=== PATIENT | male | born 1965 | race Caucasian/White ===

== ENCOUNTER → 2019-12-16 10:06 | Outpatient (CLI) | payer BC, SELFPAY ==
--- NOTE | ~2019-12-16 | XR_ITS ---
XR shoulder RT min 2V 12/16/2019 10:29 INDICATION: Shoulder pain PROCEDURE: 4 views right shoulder COMPARISON: No prior studies for comparison. FINDINGS: Fracture, dislocation or subluxation is not identified. There are mild degenerative changes of the acromioclavicular joint. The soft tissues appear within normal limits. No foreign bodies are identified. IMPRESSION: 1: NO ACUTE BONE OR JOINT ABNORMALITY IDENTIFIED. Reviewed, dictated and finalized at location A.
== END ==
PROVIDERS: PCP Emergency Medicine; Visit Provider Emergency Medicine
DX: M25.511 Pain in right shoulder (principal)
CPT/HCPCS: 73030

== ENCOUNTER 2020-12-13 08:29 | Outpatient (CLI) | payer BC, SELFPAY ==
--- NOTE | ~2020-12-13 | US_ITS ---
EXAMINATION: US abdomen complete DATE: 12/13/2020 09:05 INDICATION: Leukopenia TECHNIQUE: Multiple grayscale and Doppler ultrasound images of the abdomen were obtained. COMPARISON: None FINDINGS: Spleen is normal measuring 9.5 cm in maximal length. There is normal renal contour and echogenicity 1 1.3 x 6.2 x 5.4. The right kidney measures 11.4 x 5.0 x 5.8 cm and the left cm. There are no focal r enal lesions identified. There is no hydronephrosis. Abdominal aorta is normal measuring 2.5 cm in d iameter proximally 2.2 cm in the mid aorta and tapering to 1.8 cm the distal aorta. The proximal to m id inferior vena cava is normal. The pancreatic head and body are normal in appearance. The pancreas is largely obscured with small visualized portion of the pancreatic body appearing normal. Liver has normal echogenicity and contour, with a smooth surface. No liver lesion identified. No intrahepatic biliary duct dilation suspected. Portal venous flow was seen in the hepatopetal, normal direction and has normal Doppler waveform. The gallbladder is normal in appearance. There is no cholelithiasis. T he common bile duct measures 3 mm, which is normal. Sonographic Mathias sign was reported as negative by the advertising sales representative. IMPRESSION: 1. Normal abdominal ultrasound. Reviewed, dictated and finalized at location A.
== END 2020-12-13 08:30 | disposition home or self-care (01) ==
PROVIDERS: PCP Emergency Medicine; Visit Provider Internal Medicine Hematology & Oncology
DX: D72.819 Decreased white blood cell count, unspecified (principal)
CPT/HCPCS: 76700

== ENCOUNTER → 2021-01-23 10:11 | Outpatient (CLI) | payer BC, SELFPAY ==
--- NOTE | ~2021-01-23 | XR_ITS ---
XR cervical spine 4-5V 01/23/2021 10:34 Indication: Bilateral finger numbness Procedure: 4 view cervical spine Comparison: No prior studies for comparison. Findings: Normal cervical alignment. Vertebral body and disc heights are preserved. No prevertebral s oft tissue swelling. Odontoid process within normal limits. No fracture or traumatic malalignment. Impression: 1: No significant abnormality of the cervical spine Reviewed, dictated and finalized at location B. Impression: 1: No significant abnormality of the cervical spine
== END ==
PROVIDERS: PCP Emergency Medicine; Visit Provider Emergency Medicine
DX: R20.2 Paresthesia of skin (principal)
CPT/HCPCS: 72050

== ENCOUNTER 2021-12-30 10:42 | Outpatient (CLI) | payer BC, SELFPAY ==
[2021-12-30 11:16] LABS: Basophils Percent Auto 0.6 % (0.2-1.2); Eosinophils Percent Auto 0.8 % (0-4.4); Hematocrit 39.2 % (42.0-52.0); Hemoglobin 13.1 g/dL (14.0-18.0); Immature Granulocyte Absolute 0.01 K/mm3 (0.00-0.031); Immature Granulocyte Percent A 0.3 % (0-0.5); Lymphocytes Absolute Auto 0.88 K/mm3 (0.9-3.2); Lymphocytes Percent Auto 24.8 % (18.3-44.2); Mean Corpuscular HGB Conc 33.4 g/dl (32-36); Mean Corpuscular Hemoglobin 31.2 pg (26-34); Mean Corpuscular Volume 93.3 fl (80-100); Mean Platelet Volume 9.3 fl (7.4-10.4); Monocytes Absolute Auto 0.5 K/mm3 (0.1-0.6); Monocytes Percent Auto 13.2 % (2.6-8.5); Neutrophils Absolute Auto 2.1 K/mm3 (1.3-6.7); Neutrophils Percent Auto 60.3 % (45.5-73.1); Platelet Count Result 322 k/mm3 (150-375); Red Cell Distribution Width 12.5 % (11.5-14.5); White Blood Count 3.6 K/mm3 (4.5-10.0)
[2021-12-30 14:23] LABS: Alanine Aminotransferase 41 U/L (6-50); Albumin Level 4.5 g/dL (3.5-5.1); Alkaline Phosphatase 65 U/L (38-126); Anion Gap 5 mmol/L (8-16); Aspartate Amino Transferase 57 U/L (17-59); Bilirubin,Total 0.3 mg/dL (0.2-1.3); Blood Urea Nitrogen 21 mg/dL (9-20); Calcium 9.1 mg/dL (8.4-10.2); Carbon Dioxide 28 mmol/L (22-30); Chloride 100 mmol/L (98-107); Estimated Glomerular Filt Rate > 60; Glucose 84 mg/dL (65-110); Sodium 133 mmol/L (137-145)
[2021-12-30 15:36] LABS: Folic Acid > 20.0 ng/mL (2.76->20)
== END 2021-12-30 10:43 | disposition home or self-care (01) ==
LOC: ANHLAB 10:43
PROVIDERS: PCP Emergency Medicine; Visit Provider Internal Medicine Hematology & Oncology
DX: D72.819 Decreased white blood cell count, unspecified (principal)
CPT/HCPCS: 36415; 80053; 82607; 82746; 85025; 86038

== ENCOUNTER 2022-07-14 10:16 | Emergency (ER) | payer BC, SELFPAY ==
--- NOTE | ~2022-07-14 | XR_ITS ---
XR chest 2V 07/14/2022 12:22 Indication: Cough for 15 days. Procedure: PA and lateral views of the chest Comparison: 05/18/2019 Findings: There is a new irregular shaped nodular density right mid thorax, suspicious for malignancy . Recommend correlation with CT chest. Size normal. No pleural effusion or pneumothorax. Left lung cl ear. Impression: 1: New irregular nodular density right mid thorax. Recommend follow-up CT chest for further character ization. Reviewed, dictated and finalized at location A. CHOOL ASSOCIATE TEACHER Impression: 1: New irregular nodular density right mid thorax. Recommend follow-up CT chest for further characterization.
[2022-07-14 10:36] VITALS: BP 126/76; PULSE 74; RESP 20; TEMP 36.1; O2SAT 98
--- NOTE | 2022-07-14 12:02 | ED.URI ---
HPI - URI/Sore Throat General Chief Complaint: Upper Respiratory Infection Stated Complaint: FEVER Time Seen by Provider: 07/14/22 12:02 Source: patient, RN notes reviewed and old records reviewed Mode of arrival: ambulatory Limitations: no limitations History of Present Illness HPI Narrative: 57 year old male who presents to [facility] with complaints of illness since the 15 of this month which included fever and cough. Patient states that he seems not to be able to get well. He reports that he no longer has fevers but continues to have cough which is productive, nasal congestion and drainage, states that he feels like he is run down and has no energy. Patient reports that he has some shortness of breath especially when he lays down, has had to sleep propped up. Patient reports that he has taken DayQuil, NyQuil, Flonase, Ibuprofen MD elicited complaint: fever, rhinorrhea, sinus pain and other (orthopnea) Pertinent past history: other (prior history of smoking) Onset (ago): week(s) (2) Exacerbating factors: supine positioning Associated symptoms: fever, rhinorrhea, nasal congestion, cough, shortness of breath and other (orthopnea) Treatments prior to arrival: ibuprofen, cold medicine and other (Flonase) Related Data Home Medications Medication Instructions Recorded Confirmed amitriptyline 50 mg tablet 50 mg PO DAILY 07/14/22 07/14/22 losartan 100 1 tablet PO DAILY 07/14/22 07/14/22 mg-hydrochlorothiazide 25 mg tablet metoprolol succinate 50 mg 50 mg PO DAILY 07/14/22 07/14/22 tablet,extended release 24 hr Allergies Allergy/AdvReac Type Severity Reaction Status Date / Time No Known Allergies Allergy Verified 07/14/22 11:17 Review of Systems Review of Systems: CONSTITUTIONAL: Reports malaise, chills, sweats, or fever. EYES: Denies visual changes, redness, or discharge. ENT: Reports rhinorrhea, congestion, sinus pain, no otalgia or sore throat. CARDIOVASCULAR: Denies chest pain, palpitations, or edema. RESPIRATORY: Reports cough.? Reports dyspnea and orthopnea GASTROINTESTINAL: Denies abdominal pain, nausea, vomiting, diarrhea SKIN: Denies rash or itching. MUSCULOSKELETAL: Denies myalgia. NEUROLOGIC: Denies headache. All systems reviewed & are unremarkable except as noted in HPI and below PMFSH Past Medical History Medical History (Updated 12/04/22 @ 09:51 by Cassie Landis NP) Anxiety Hypertension Shingles Social History Social History (Updated 07/18/22 @ 09:44 by Cassie Landis NP) Smoking status: Former smoker Alcohol intake: unknown Substance use type: does not use Education: Never Attended/Kindergarten Only Living arrangements: with family Gender identity (if verbalized by the patient): Male Comments At time of signature, agree with nursing past medical, surgical, social and family history. There is no relevant family history pertinent to the presenting complaint Exam Narrative: GENERAL: Illl-appearing, well-nourished, and in no acute distress. HEAD: Normocephalic EYES: PERRLA, conjunctivae clear ENT: Nares clear, turbinates edematous and erythematous, clear discharge. Mucous membranes moist. TM pearly perkins with dull light reflex bilaterally; no tragal tenderness. Oropharynx erythematous without lesions. Tonsils not enlarged and without exudate, no drooling, no hoarseness, no trismus, uvula midline.post nasal drainage NECK: Supple. No lymphadenopathy CHEST: Decreased to auscultation, breath sounds equal. No wheezing, rhonchi, rales, or stridor. No acute respiratory distress, speaks in full sentences.acute cough with orthopnea. HEART: Regular rate and rhythm. No murmur heard. SKIN: Warm, dry, no rash. NEURO: Alert and oriented x3. PSYCH: Normal mood and affect Course Course Emergency Course: Patient is aware of diagnosis, understands and agrees to treatment plan.? Anticipatory guidance given.? Patient agrees to follow-up as directed
== END 2022-07-14 13:20 | disposition home or self-care (01) ==
PROVIDERS: Emergency Provider Registered Nurse
DX: J18.9 Pneumonia, unspecified organism (principal); I10 Essential (primary) hypertension; Z87.891 Personal history of nicotine dependence
CPT/HCPCS: 71046; 99213; G0463

== ENCOUNTER 2022-07-15 11:05 | Outpatient (CLI) | payer BC, SELFPAY ==
--- NOTE | ~2022-07-15 | CT_ITS ---
EXAMINATION:CT diagnostic chest wo con DATE: 07/15/2022 11:27 INDICATION: Right lung nodule. TECHNIQUE: Computed tomography (CT) of the chest was performed without intravenous contrast. Automate d exposure control and iterative reconstruction technique were employed. The dose-length product (DLP ) was 207.69 mGy-cm. COMPARISON: Chest 2 views 07/14/2022 FINDINGS: There are airspace opacities and tree-in-bud opacities and centrilobular nodules involving posterior segment right upper lobe, consistent with pneumonia. There are centrilobular groundglass op acities in right middle lobe. There are tree-in-bud opacities in the basilar lower lobes and perihila r left upper lobe. No pleural effusion. Calcified hilar and mediastinal lymph nodes are consistent wi th old granulomatous disease. There is mild noncalcified mediastinal lymphadenopathy, likely reactive . The heart size is normal. There are coronary artery calcifications. No pericardial effusion. There is mild thoracic spondylosis. IMPRESSION: 1. Multifocal pneumonia, worst in right upper lobe correlating with the chest radiograph abnormality. 2. Mild mediastinal lymphadenopathy, likely reactive. Reviewed, dictated and finalized at location A. ENTARY SCHOOL TEACHER'S AIDE IMPRESSION: 1. Multifocal pneumonia, worst in right upper lobe correlating with the chest r adiograph abnormality. 2. Mild mediastinal lymphadenopathy, likely reactive.
== END 2022-07-15 11:06 | disposition home or self-care (01) ==
PROVIDERS: PCP Emergency Medicine; Visit Provider Emergency Medicine
DX: R91.1 Solitary pulmonary nodule (principal); J18.9 Pneumonia, unspecified organism
CPT/HCPCS: 71250

== ENCOUNTER → 2022-09-17 08:34 | Outpatient (CLI) | payer BC, SELFPAY ==
--- NOTE | ~2022-09-17 | XR_ITS ---
Clinical Indication: Pneumonia PA and lateral views of the chest: Comparison: 07/14/2022 Findings: The lungs are clear, without evidence of focal consolidation or pleural effusion. Cardiome diastinal silhouette is within normal limits. Bones and soft tissues are unremarkable. Impression: Normal chest. Reviewed, dictated and finalized at [facility]. OR PRICING ANALYST Impression: Normal chest.
== END ==
PROVIDERS: PCP Emergency Medicine; Visit Provider Emergency Medicine
DX: J18.9 Pneumonia, unspecified organism (principal)
CPT/HCPCS: 71046

== ENCOUNTER 2022-09-22 13:04 | Outpatient (CLI) | payer BC, SELFPAY ==
[2022-09-22 13:18] LABS: Hemoglobin 13.1 g/dL (14.0-18.0); Mean Corpuscular HGB Conc 33.6 g/dl (32-36); Mean Corpuscular Volume 92.4 fl (80-100); Platelet Count Result 320 k/mm3 (150-375); Red Blood Count 4.22 M/mm3 (4.6-6.20); Red Cell Distribution Width 12.7 % (11.5-14.5); White Blood Count 5.3 K/mm3 (4.5-10.0)
[2022-09-22 13:54] LABS: Alanine Aminotransferase 31 U/L (6-50); Albumin Level 4.4 g/dL (3.5-5.1); Alkaline Phosphatase 84 U/L (38-126); Anion Gap 6 mmol/L (8-16); Aspartate Amino Transferase 48 U/L (17-59); Bilirubin,Total 0.8 mg/dL (0.2-1.3); Blood Urea Nitrogen 20 mg/dL (9-20); Calcium 9.2 mg/dL (8.4-10.2); Carbon Dioxide 29 mmol/L (22-30); Chloride 100 mmol/L (98-107); Estimated Glomerular Filt Rate > 60; Glucose 93 mg/dL (65-110); Potassium 4.4 mmol/L (3.4-5.0); Sodium 135 mmol/L (137-145)
[2022-09-22 14:41] LABS: Iron 120 ug/dL (49-181)
[2022-09-22 14:50] LABS: Percent Iron Saturation 36 % (20-50)
[2022-09-22 15:00] LABS: Folic Acid 19.4 ng/mL (2.76->20)
== END 2022-09-22 13:05 | disposition home or self-care (01) ==
PROVIDERS: PCP Emergency Medicine; Visit Provider Internal Medicine Hematology & Oncology
DX: D72.819 Decreased white blood cell count, unspecified (principal)
CPT/HCPCS: 36415; 80053; 82607; 82728; 82746; 83540; 83550; 85027

== ENCOUNTER → 2023-04-29 11:42 | Outpatient (CLI) | payer BC, SELFPAY ==
--- NOTE | ~2023-04-29 | XR_ITS ---
Clinical Indication: Wheezing PA and lateral views of the chest: Comparison: 09/17/2022 Findings: The lungs are clear, without evidence of focal consolidation or pleural effusion. Cardiome diastinal silhouette is within normal limits. Bones and soft tissues are unremarkable. Impression: Normal chest. Reviewed, dictated and finalized at [facility]. Impression: Normal chest.
== END ==
PROVIDERS: PCP Emergency Medicine; Visit Provider Emergency Medicine
DX: R06.2 Wheezing (principal)
CPT/HCPCS: 71046

== ENCOUNTER 2023-09-22 13:54 | Outpatient (CLI) | payer BC, SELFPAY ==
[2023-09-22 14:22] LABS: Basophils Percent Auto 0.5 % (0.2-1.2); Eosinophils Percent Auto 0.5 % (0-4.4); Hematocrit 37.2 % (42.0-52.0); Hemoglobin 12.6 g/dL (14.0-18.0); Immature Granulocyte Absolute 0.01 K/mm3 (0.00-0.031); Immature Granulocyte Percent A 0.2 % (0-0.5); Lymphocytes Absolute Auto 1.09 K/mm3 (0.9-3.2); Lymphocytes Percent Auto 24.8 % (18.3-44.2); Mean Corpuscular HGB Conc 33.9 g/dl (32-36); Mean Corpuscular Hemoglobin 31.1 pg (26-34); Mean Corpuscular Volume 91.9 fl (80-100); Mean Platelet Volume 8.8 fl (7.4-10.4); Monocytes Absolute Auto 0.7 K/mm3 (0.1-0.6); Neutrophils Absolute Auto 2.6 K/mm3 (1.3-6.7); Platelet Count Result 362 k/mm3 (150-375); Red Blood Count 4.05 M/mm3 (4.6-6.20); Red Cell Distribution Width 12.7 % (11.5-14.5); White Blood Count 4.4 K/mm3 (4.5-10.0)
[2023-09-22 17:25] LABS: Add Urine Microscopic? YES; Appearance Urine Clear (Clear); Bacteria Urine None Seen /hpf; Bilirubin Urine Negative (Negative); Blood Urine Negative (Negative); Color Urine Yellow (Yellow); Glucose Urine UA Negative (Negative); Ketones Urine Trace mg/dL (Negative); Leukocyte Esterase Ur Negative LEU/UL (NEGATIVE); Nitrate Urine Negative (Negative); Non Pathogenic Casts 0-2; Protein Urine 1+ mg/dL (Negative); RBC Urine 0-2 /hpf (0-2); Specific Grav Ur 1.023 (1.001-1.035); Squamous Epithelial Cell Urine None seen /hpf (Few); WBC Urine 0-5 /hpf (0-3); pH Urine 5.5 (5.0-9.0)
[2023-09-22 17:26] LABS: Alanine Aminotransferase 41 U/L (6-50); Albumin Level 4.3 g/dL (3.5-5.1); Alkaline Phosphatase 79 U/L (38-126); Anion Gap 8 mmol/L (8-16); Aspartate Amino Transferase 62 U/L (17-59); Bilirubin,Total 0.8 mg/dL (0.2-1.3); Blood Urea Nitrogen 30 mg/dL (9-20); Calcium 9.8 mg/dL (8.4-10.2); Carbon Dioxide 25 mmol/L (22-30); Chloride 103 mmol/L (98-107); Cholesterol 248 mg/dL (0-200); Estimated Glomerular Filt Rate > 60; Glucose 94 mg/dL (65-110); HDL Direct 73 mg/dL; Iron 103 ug/dL (49-181); Potassium 4.5 mmol/L (3.4-5.0); Sodium 136 mmol/L (137-145); Triglycerides 74 mg/dL (<150)
[2023-09-22 17:37] LABS: LDL Cholesterol Direct 126 mg/dL
[2023-09-22 17:41] LABS: Percent Iron Saturation 33 % (20-50)
[2023-09-22 17:45] LABS: Free T4 Free Thyroxine 1.13 ng/mL (0.78-2.19)
[2023-09-22 18:39] LABS: Folic Acid > 20.0 ng/mL (2.76->20)
== END 2023-09-22 13:55 | disposition home or self-care (01) ==
LOC: ANHLAB 13:56
PROVIDERS: PCP Emergency Medicine; Visit Provider Internal Medicine Hematology & Oncology
DX: D64.9 Anemia, unspecified (principal); I10 Essential (primary) hypertension; E78.5 Hyperlipidemia, unspecified; D72.819 Decreased white blood cell count, unspecified
CPT/HCPCS: 36415; 80053; 80061; 81001; 82607; 82728; 82746; 83540; 83550; 84439; 84443; 85025

== ENCOUNTER 2024-03-26 11:28 | Outpatient (CLI) | payer BC, SELFPAY ==
[2024-03-26 11:54] LABS: Basophils Percent Auto 0.6 % (0.2-1.2); Eosinophils Percent Auto 0.8 % (0-4.4); Hematocrit 37.6 % (42.0-52.0); Hemoglobin 12.9 g/dL (14.0-18.0); Immature Granulocyte Absolute 0.01 K/mm3 (0.00-0.031); Immature Granulocyte Percent A 0.2 % (0-0.5); Lymphocytes Absolute Auto 1.15 K/mm3 (0.9-3.2); Lymphocytes Percent Auto 22.7 % (18.3-44.2); Mean Corpuscular HGB Conc 34.3 g/dl (32-36); Mean Corpuscular Hemoglobin 31.6 pg (26-34); Mean Corpuscular Volume 92.2 fl (80-100); Mean Platelet Volume 8.9 fl (7.4-10.4); Monocytes Absolute Auto 0.6 K/mm3 (0.1-0.6); Monocytes Percent Auto 11.2 % (2.6-8.5); Neutrophils Absolute Auto 3.3 K/mm3 (1.3-6.7); Neutrophils Percent Auto 64.5 % (45.5-73.1); Platelet Count Result 341 k/mm3 (150-375); Red Blood Count 4.08 M/mm3 (4.6-6.20); Red Cell Distribution Width 12.3 % (11.5-14.5); White Blood Count 5.1 K/mm3 (4.5-10.0)
[2024-03-26 16:29] LABS: Add Urine Microscopic? YES; Appearance Urine Clear (Clear); Bacteria Urine None Seen /hpf; Bilirubin Urine Negative (Negative); Blood Urine Negative (Negative); Color Urine Yellow (Yellow); Glucose Urine UA Negative (Negative); Ketones Urine Negative (Negative); Leukocyte Esterase Ur Negative LEU/UL (Negative); Nitrate Urine Negative (Negative); Non Pathogenic Casts 0-2; Protein Urine Trace mg/dL (Negative); RBC Urine 0-2 /hpf (0-2); Squamous Epithelial Cell Urine None Seen /hpf (Few); Urobilinogen Urine 0.2 mg/dL (<2.0); WBC Urine 0-5 /hpf (0-3); pH Urine 5.5 (5.0-9.0)
[2024-03-26 17:32] LABS: Creatinine Urine 118.5 mg/dL
[2024-03-26 17:38] LABS: MALB Creatinine Ratio 66.8 mg/g (0-30); Microalbumin Urine Random 79.1 mg/L (0-16.7)
[2024-03-26 18:35] LABS: Free T4 Free Thyroxine 1.22 ng/mL (0.78-2.19)
[2024-03-26 19:45] LABS: Iron 107 ug/dL (49-181)
[2024-03-26 19:52] LABS: Cholesterol 279 mg/dL (0-200); HDL Direct 64 mg/dL; Triglycerides 135 mg/dL (<150)
[2024-03-26 19:57] LABS: Percent Iron Saturation 35 % (20-50)
[2024-03-26 20:03] LABS: LDL Cholesterol Direct 161 mg/dL
[2024-03-26 20:13] LABS: Alanine Aminotransferase 29 U/L (6-50); Albumin Level 4.4 g/dL (3.5-5.1); Alkaline Phosphatase 79 U/L (38-126); Anion Gap 10 mmol/L (4-12); Aspartate Amino Transferase 42 U/L (17-59); Bilirubin,Total 0.6 mg/dL (0.2-1.3); Blood Urea Nitrogen 26 mg/dL (9-20); Calcium 9.1 mg/dL (8.4-10.2); Carbon Dioxide 26 mmol/L (22-30); Chloride 96 mmol/L (98-107); Estimated Glomerular Filt Rate > 60; Glucose 97 mg/dL (65-110); Potassium 4.6 mmol/L (3.4-5.0); Sodium 132 mmol/L (137-145)
[2024-03-26 20:25] LABS: Prostate Specific Antigen 1.1 ng/mL (< OR = 4.0)
[2024-03-26 21:28] LABS: Folic Acid > 20.0 ng/mL (2.76->20)
[2024-03-26 21:44] LABS: Hemoglobin A1C 5.6 % (<5.7)
== END 2024-03-26 11:29 | disposition home or self-care (01) ==
LOC: ANHLAB 11:30
PROVIDERS: PCP Emergency Medicine; Visit Provider Internal Medicine Hematology & Oncology
DX: D72.819 Decreased white blood cell count, unspecified (principal); F41.9 Anxiety disorder, unspecified; I10 Essential (primary) hypertension; E78.5 Hyperlipidemia, unspecified
CPT/HCPCS: 36415; 80053; 80061; 81001; 82043; 82607; 82728; 82746; 83036; 83540; 83550; 84153; 84439; 84443; 85025

== ENCOUNTER 2024-03-28 10:51 | Outpatient (CLI) | payer BC, SELFPAY ==
[2024-03-28 21:17] LABS: Immunoglobulin A 374 mg/dL (70-400); Immunoglobulin G 1744 mg/dL (700-1600); Immunoglobulin M 65 mg/dL (40-230)
[2024-03-29 16:33] LABS: Kappa\\Lambda Light Chains 0.87 (0.26-1.65); Lambda Light Chain 43.7 mg/L (5.7-26.3)
[2024-03-30 13:43] LABS: Protein, Total 7.5 g/dL (6.1-8.1)
[2024-04-03 08:34] LABS: Albumin 4.2 g/dL (3.8-4.8); Alpha 1 Globulin 0.3 g/dL (0.2-0.3); Alpha 2 Globulin 0.7 g/dL (0.5-0.9); Beta 1 Globulin 0.5 g/dL (0.4-0.6); Gamma Globulin 1.5 g/dL (0.8-1.7)
== END 2024-03-28 10:52 | disposition home or self-care (01) ==
LOC: ANHLAB 10:52
PROVIDERS: PCP Emergency Medicine; Visit Provider Internal Medicine Hematology & Oncology
DX: R77.9 Abnormality of plasma protein, unspecified (principal)
CPT/HCPCS: 36415; 82784; 83883; 84155; 84165

== ENCOUNTER 2024-11-09 13:16 | Outpatient (CLI) | payer BC, SELFPAY ==
--- OUTSIDE RECORDS SUMMARY | 2024-11-09 13:20 | XMS_ITS | Clinical Summary ---
Author Organization [facility] [employer] Address [address] [place] [address] Care Team Providers Care Barrel Waterer Name Role Phone Leandro Farrell MD Primary Care Provider [phone] Source Comments [facility] [employer],non-owned Affiliates and Associated Physician Practices is amultiple site organization consisting of ambulatory clinics and hospital sitesin [place], [place], [place] and [place]. This disclosure is being madepursuant to the Care Everywhere program and may not contain all information available regarding this patient. Last updated 18.[facility] [employer] Allergies No known active allergies Medications * Be aware that medications may not be up to date on this document. Alwaysverify current medications with the patient. Medication Sig Dispensed Refills Start Date End Date Status Cyanocobalamin 1000 MCG 01/06/2021 Active fluticasone propionate (FLONASE) 50 MCG/ACT nasal spray 11/17/2020 Active lisinopril-hydroCHLORO thiazide (PRINZIDE; ZESTORETIC) 20-12.5 MG tablet Take 1 tablet by mouth 2 times daily 11/24/2020 Active nystatin (MYCOSTATIN) 848991 UNIT/GM cream 04/19/2021 Acti ve Ostrander-3 Fatty Acids (FISH OIL CONCENTRATE) 1000 MG 01/06/2021 Active PARoxetine (PAXIL) 20 MG tablet 03/31/2021 Active simvastatin (ZOCOR) 20 MG tablet 02/01/2021 Active triamcinolone acetonide (KENALOG) 0.1 % cream 03/31/2021 Active Active Problems Problem Noted Date Diagnosed Date Anxiety 01/06/2021 Leukopenia 12/05/2020 Primary hypertension 05/21/2019 Tobacco abuse 05/21/2019 Family History Medical History Relation Name Comments Heart Disease Father Other - Neurologic Father Stroke Cancer Mother Relation Name Status Comments Father Mother Social History Tobacco Use Types Packs/Day Years Used Date Smoking Tobacco: Every Day Cigarettes 0.5 10 Smokeless Tobacco: Never Alcohol Use Standard Drinks/Week Comments Yes 0 (1 standard drink = 0.6 oz pur e alcohol) daily Sex and Gender Information Value Date Recorded Sex Assigned at Not on file Gender Identity Not on file Sexual Orientation Not on file Last Filed Vital Signs Vital Sign Reading Time Taken Comments Blood Pressure 143/75 06/09/2021 7:58 AM CDT Pulse 77 06/09/2021 7:58 AM CDT Temperature 36.1 C (97 F) 06/09/2021 7:58 AM CDT Respiratory Rate - - Oxygen Saturation 94% 06/09/2021 7:58 AM CDT Inhaled Oxygen Concentration - - Weight 83.6 kg (184 lb 6.4 oz) 06/09/2021 7:58 A M CDT Height 180.3 cm (5' 11 ) 06/09/2021 7:58 AM CDT Body Mass Index 25.72 06/09/2021 7:58 AM CDT Plan of Treatment Health Maintenance Due Date Last Done Comments COLOGUARD (AGES 45-75) - COL ON CA SCREENING 1965 COLON MONITORING 1964 COLONOSCOPY - COLON CA SCREENING 1964 CT COLONOGRAPHY - COLON CA SCREENING 1965 Colorectal Cancer Screening 1965 FIT - COLON CA SCREENING 1964 FLEX SIG - COLON CA SCREENING 1964 HIV SCREENING 02/20/1979 HEPATITIS C SCREENING 02/16/1982 DTAP/TDAP/TD VACCINES (1 - Tdap) 02/20/1983 PNEUMOCOCCAL VACCINE 50+ (1 of 2 - PCV) 02/20/1983 PNEUMOCOCCAL VACCINE (1 of 2 - PCV) 02/20/1983 ZOSTER VACCINE (1 of 2) 02/20/2014 SCREENING FOR DIABETES 06/09/2021 COVID-19 VACCINE (4 - 2023-2 5 season) 2024 08/16/2021, 12/28/2020, 12/07/2020 INFLUENZA VACCINE (#1) 2024 08/06/2020 DEPRESSION SCREENING 08/15/2024 Respiratory Syncytial Virus (RSV) Vaccine Pt: or over 60 yrs (1 - 1-dose 75+ series) 02/20/2039 HEPATITIS B VACCINE Aged Out No longe r eligible based on patient's age to complete this topic HIB VACCINE Aged Out No longer eligi ble based on patient's age to complete this topic HPV VACCINE Aged Out No longer eligi ble based on patient's age to complete this topic MENINGOCOCCAL (Group B) VACCINE SHARED DECISION-MAKING Aged Out No longer eligible based on patient's age to complete this topic MENINGOCOCCAL GROUPS A/C/Y/W VACCINE Aged Out No longer eligible b ased on patient's age to complete this topic Care Teams Barrel Waterer Relationship Specialty Start Date End Date Leandro Farrell MD [address] [address] [place] [address] PCP - General 02/10/21
--- OUTSIDE RECORDS SUMMARY | 2024-11-09 13:21 | XMS_ITS | Clinical Summary ---
Author Organization [facility] Address [address] [place] [id number] Care Team Providers Care Quarter Folder Name Role Phone Unavailable Primary Care Provider Unavailabl e Social History Tobacco Use Types Packs/Day Years Used Date Smoking Tobacco: Never Assessed Sex and Gender Information Value Date Recorded Sex Assigned at Not on file Legal Sex Male 6:23 PM CDT Gender Identity Not on file Sexual Orientation Not on file Plan of Treatment Health Maintenance Due Date Last Done Comments Colorectal Cancer Screening Colonoscopy (10 Years) 1964 Annual Physical 02/20/1967 Hepatitis C 02/20/1982 DTaP, Tdap and Td Vaccines ( 1 - Tdap) 02/20/1983 Zoster Vaccines (1 of 2) 02/20/2014 COVID-19 Vaccine (2023-2 5 season) 2024 Influenza Adult (#1) 2024 RSV Immunization or 60+ Years (1 - 1-dose 75+ series) 02/20/2039 Meningococcal B Vaccine Aged Out No l onger eligible based on patient's age to complete this topic Meningococcal Vaccine Aged Out No roxana chivo eligible based on patient's age to complete this topic Pneumococcal Vaccine: Pediat rics (0 to 5 Years) and At-Risk Patients (6 to 64 Years) Aged Out No longer eligible b ased on patient's age to complete this topic RSV Immunizations Under 20 Months Aged Out No longer eligible based on patient's age to complete this topic
--- OUTSIDE RECORDS SUMMARY | 2024-11-09 13:21 | XMS_ITS | Clinical Summary ---
Author Organization [facility] Address [address] [place] [address] Care Team Providers Care Glass Maker Name Role Phone Leandro Farrell MD Primary Care Provider [phone] Allergies No known active allergies Medications fluticasone propionate (FLONASE) 50 mcg/spray Graham, Suspension nasal inhaler SPRAY 1 SPRAY INTO EACH NOSTRIL TWICE A DAY 11/17/2020 Active PARoxetine HCl (PAXIL) 10 mg tablet TAKE 1 TABLET BY MOUTH EVERY DAY 11/24/2020 Active COVID-19 vacc, mRNA,Pfizer,/PF (PFIZER COVID-19 VACCINE, EUA, IM) 12/07/2020 Active cyanocobalamin 1,000 mcg Tablet Take by mouth. 01/06/2021 Active Docosahexanoic Acid-Eicosapent 120-180 mg Capsule Take by mouth. 01/06/2021 Active losartan-hydroC HLOROthiazide (HYZAAR) 100-25 mg tablet Take by mouth. 01/05/2022 Active metoprolol succinate (TOPROL XL) 50 mg Extended Release 24 hour tablet Take by mouth. 02/11/2022 Active folic acid (FOLVITE) 400 mcg Tablet Take 400 mcg by mouth daily. Active ferrous sulfate 325 mg (65 mg iron) tablet Take 325 mg by mouth daily. Active omega-3/dha/epa /dpa/fish oil (OMEGA-3 2100 ORAL) Take by mouth. Active Active Problems Problem Noted Date Diagnosed Date Leukopenia 12/05/2020 Family History Medical History Relation Name Comments Heart Disease Father Relation Name Status Comments Daughter Father Mother Alive Sister 1 Sister 2 Alive Sister 3 Alive Sister 4 Alive Son 1 Alive Son 2 Alive Social History Tobacco Use Types Packs/Day Years Used Date Smoking Tobacco: Former Cigarettes Q uit: 08/15/2022 Smokeless Tobacco: Current Chew Tobacco Cessation:Ready to Q uit: Not Asked; Counseling Given: Not Answered Comments:couple a day Alcohol Use Standard Drinks/Week Comments Yes 0 (1 standard drink = 0.6 oz pur e alcohol) Sex and Gender Information Value Date Recorded Sex Assigned at Male 06/01/2024 10:17 PM CDT Legal Sex Male 1:08 PM CDT Gender Identity Male 06/01/2024 10:17 PM CDT Sexual Orientation Not on file Last Filed Vital Signs Vital Sign Reading Time Taken Comments Blood Pressure 137/74 03/28/2024 9:56 AM CDT Pulse 68 03/28/2024 9:56 AM CDT Temperature 36.8 C (98.2 F) 03/28/2024 9:56 AM CDT Respiratory Rate 16 03/28/2024 9:56 AM CDT Oxygen Saturation 96% 03/28/2024 9:56 AM CDT Inhaled Oxygen Concentration - - Weight 88.5 kg (195 lb) 03/28/2024 9:56 AM CDT Height 177.8 cm (5' 10 ) 01/01/2022 8:31 AM CDT Body Mass Index 27.98 01/01/2022 8:31 AM CDT Plan of Treatment Upcoming Encounters Date Type Department Care Team (Late st Contact Info) Description 11/15/2024 2:00 PM CDT Office Visit [facility] [place] [address] [facility] [address] [place] [address] Min Roberts MD [address] [facility] [address] [place] [address] Health Maintenance Due Date Last Done Comments Pre-Diabetes and Diabetes Screening 1965 DTAP/TDAP/TD VACCINES (1 - Tdap) 02/20/1983 COLORECTAL SCREENING 02/20/2009 Colorectal Cancer Screening 02/20/2009 FIT-DNA Q 3 years 02/20/2009 FIT/FOBT Q 1 year 02/20/2009 Flex Sig/CT Colonography Q 5 years 02/20/2009 ZOSTER VACCINE (1 of 2) 02/20/2014 INFLUENZA VACCINE (#1) 2024 Preventative Visit- Commercial 08/15/2024 RSV VACCINE (60+ or ) (1 - 1-dose 75+ series) 02/20/2039 Abdominal Aortic Aneurysm (A AA) Screening Completed 12/13/2020 HEPATITIS B VACCINES Aged Out No long er eligible based on patient's age to complete this topic Procedures Procedure Name Priority Date/Time Associated Diagnosis Comments US ABDOMEN COMPLETE Routine 12/13/2020 Leukopenia, unspecified type from Last 3 Months or Most Recently Relevant to Health Maintenance Results * US ABDOMEN COMPLETE (12/13/2020) Anatomical Region Laterality Modality Abdomen Ultrasound Min Roberts MD US ORDERABLES Final Result from Last 3 Months or Most Recently Relevant to Health Maintenance Insurance [address] BLUE ACCESS CHOICE Care Teams Glass Maker Relationship Specialty Start Date End Date Leandro Farrell MD [address] [place] [id number] PCP - General Emergency Medicine 12/05/20
--- OUTSIDE RECORDS SUMMARY | 2024-11-09 13:21 | XMS_ITS | CONTINUITY OF CARE DOCUMENT ---
Author Name chelo sandykana Address Unknown Organization [facility] Address [address] [facility] [address] [place] [address] Phone [phone] Care Team Providers Care Certified Master Safe Technician Name Role Phone Francisco LAMBERT, Tyler Unavailable VIVEK STEWART MD Unavailable [phone] VIVEK STEWART MD Unavailable [phone] PROBLEMS Condition Status Date Provider Notes Cardiovascular screening completed - Tyler Singh MD Abnormal EKG active Tyler Singh MD HTN essential active Tyler Singh MD DYSPNEA ON EXERTION, nml str ess echo 06/02 active Tyler Singh MD Emphysema active Tyler Singh MD FAMILY HISTORY OF HEART DISEASE active Tre Singh MD Tobacco abuse--quit active Tyler Singh MD Dizziness active Qaun Avelt Anxiety active Quan Tracy Chest pain--stress test & ec ho nl, 08/2023 active Tyler Singh MD ENCOUNTERS Date Type Provider Location Encounter Diag nosis - In-person encounter Office Visit Tyler Singh MD [facility] Chest pain--stress test & echo nl, 08/2023 - In-person encounter Office Visit Tyler Singh MD [facility] Tobacco abuse--quit - In-person encounter Office Visit Tyler Singh MD [facility] - In-person encounter Office Visit Tyler Singh MD [facility] - In-person encounter Office Visit Tyler Singh MD [facility] DizzinessAnxiety - In-person encounter Office Visit Tyler Singh MD [facility] - In-person encounter Office Visit Tyler Singh MD [facility] - In-person encounter Office Visit Tyler Singh MD [facility] - In-person encounter Office Visit Tyler Singh MD [facility] Cardiovascular screeningDYSPNEA ON EXERTION, nml stress echo 06/02 - In-person encounter Office Visit Tyler Singh MD [facility] Abnormal EKGHTN essentialDYSPNEA ON EXERTION, nml stress echo 06/02EmphysemaFAMILY HISTORY OF HEART DISEASETobacco abuse--quit VITAL SIGNS Date Observation Value Provider Body Mass Index (Ratio) 29.70 kg/m2 Tre Singh MD blood pressure, diastolic 78 mm[Hg] Arcelia nkLog blood pressure, systolic 140 mm[Hg] Nimisha og blood pressure, cuff size regular Phu blood pressure, diastolic 78 mm[Hg] Phu et blood pressure, systolic 140 mm[Hg] [facility] pulse rate 88 /min Juan oxygen saturation, oximetry 96 % respiratory rate E&M 12 /min weight E&M 207 [lb_av] height E&M 70 [in_i] [facility] y Body Mass Index (Ratio) 28.12 kg/m2 Tre Singh MD blood pressure, diastolic 88 mm[Hg] [facility] [place] blood pressure, systolic 152 mm[Hg] Keyur watkins Brii oxygen saturation, oximetry 97 % Linda Vegaman pulse rate 76 /min Linda Hsieh n respiratory rate E&M 16 /min Hilario alejo [place] blood pressure, cuff size regular [facility] [place] weight E&M 196 [lb_av] Linda Vegand n height E&M 70 [in_i] Linda Vegand n Body Mass Index (Ratio) 28.12 kg/m2 Tre Singh MD blood pressure, diastolic 86 mm[Hg] Arcelia nkLogkedar blood pressure, systolic 149 mm[Hg] Nimisha Noelogkedar respiratory rate E&M 18 /min Long Meza blood pressure, diastolic 86 mm[Hg] Adelaida Meza blood pressure, systolic 149 mm[Hg] Marlon Meza blood pressure, cuff size regular Adelaida Meza pulse rate 85 /min Eliana longoria oxygen saturation, oximetry 98 % Eliana Meza weight E&M 196 [lb_av] Eliana longoria height E&M 70 [in_i] Eliana longoria Body Mass Index (Ratio) 25.97 kg/m2 Tre Singh MD blood pressure, cuff size large Ke rri Vicki blood pressure, diastolic 80 mm[Hg] Ke rri Vicki blood pressure, systolic 136 mm[Hg] Zenaida Cohen oxygen saturation, oximetry 98 % Monalisa Cohen respiratory rate E&M 16 /min Monalisa tomas pulse rate 73 /min Monalisa Lovell lder weight E&M 181 [lb_av] Monalisa Lovell er height E&M 70 [in_i] Monalisa Brownleee [facility] Body Mass Index (Ratio) 25.97 kg/m2 Tre Singh MD blood pressure, diastolic 83 mm[Hg] To [facility] blood pressure, systolic 153 mm[Hg] Ton [facility] oxygen saturation, oximetry 92 % [facility] respiratory rate E&M 18 /min [facility] pulse rate 81 /min [facility] weight E&M 181 [lb_av] [facility] height E&M 70 [in_i] [facility] temperature site temporal [facility] temperature E&M 97.8 [degF] Berna Tanks monie Body Mass Index (Ratio) 26.83 kg/m2 Tre Singh MD blood pressure, resting Yes [facility] respiratory rate E&M 16 /min [facility] blood pressure, diastolic 83 mm[Hg] To [facility] blood pressure, systolic 153 mm[Hg] Ton [facility] oxygen saturation, oximetry 97 % [facility] pulse rate 78 /min [facility] weight E&M 187 [lb_av] [facility] Gross height E&M 70 [in_i] [facility] height E&M 70 [in_i] Tyler Singh MD blood pressure, diastolic 80 mm[Hg] To sriram Singh MD blood pressure, systolic 140 mm[Hg] Viktor Singh MD Body Mass Index (Ratio) 26.83 kg/m2 Tre Singh MD blood pressure, diastolic 80 mm[Hg] Er gil Jesus blood pressure, systolic 160 mm[Hg] Nicole Jesus oxygen saturation, oximetry 97 % Frances Jesus pulse rate 84 /min Frances Yoo weight E&M 187 [lb_av] Frances Yoo height E&M 70 [in_i] Frances Yoo Body Mass Index (Ratio) 26.40 kg/m2 Tre Singh MD blood pressure, resting No Luiz Jesus blood pressure, diastolic 82 mm[Hg] Miguel Jesus blood pressure, systolic 150 mm[Hg] Nicole Jesus oxygen saturation, oximetry 100 % Frances Jesus pulse rate 76 /min Frances Yoo weight E&M 184 [lb_av] Frances Yoo height E&M 70 [in_i] Frances Yoo ALLERGIES No Known Drug Allergies HISTORY OF MEDICATION USE Medication Status Instructions Dates Provider Indications Com ments losartan-hydroch lorothiazide 100-25 mg tablet active Take 1 tablet by mouth once a day Monalisa Cohen metoprolol succinate 50 mg tablet extended release 24 hr active TAKE 1 TABLET BY MOUTH EVERY DAY Matheus Disla losartan-hydroch lorothiazide 100-25 mg tablet completed TAKE 1 TABLET BY MOUTH EVERY DAY - Monalisa Cohen paroxetine HCl 20 mg tablet active TAKE 1 TABLET BY MOUTH EVERY DAY Matheus Disla metoprolol succinate 50 mg tablet extended release 24 hr completed Take 1 tablet by mouth once a day - Juan Johnston amlodipine 10 mg tablet completed Take 1 tablet by mouth once a day - Quinten ePace losartan-hydroch lorothiazide 100-25 mg tablet completed Take 1 tablet by mouth once a day - Rose Hermosillong Fish Oil 120-180 mg capsule active 1 tablet by mouth once a day Monalisa Vicki cyanocobalamin (vitamin B-12) 1,000 mcg tablet active 1 tablet once a day Monalisa Vicki simvastatin 20 mg tablet completed Take 1 tablet by mouth every night - Monalisa Patelparesher #90, 90 days supply, Prescribed by VIVEK STEWART, Filled 10/28/2020 fluticasone propionate 50 mcg/actuation spray,suspension active [place] 1 spray into both nostrils twice a day as needed Monalisa Anamikaer #16, 30 days supply, Prescribed by VIVEK STEWART, Filled 11/17/2020 paroxetine HCl 20 mg tablet completed Take 1 tablet by mouth once a day - Rose Dallasnikolas #90, 90 days supply, Prescribed by VIVEK STEWART, Filled 11/24/2020 nystatin 100,000 unit/gram cream active Apply twice a day as needed Monalisa Willsoner #30, 30 days supply, Prescribed by DAVID BLEVINS, Filled 11/27/2020 lisinopril-hydro chlorothiazide 20-12.5 mg tablet completed 1 tablet by mouth twice a day - Tyler Singh MD AMLODIPINE BESYLATE 5 MG ORAL TABLET completed one tab by mouth daily - Tyler Singh MD AMLODIPINE BESYLATE 2.5 MG ORAL TABLET completed one tab by mouth twice daily - Monique Garza RN SOCIAL HISTORY Date Observation Value Provider smoking history, tot al pack/day 4/D Quinten Peace cigarette use yes Quinten Peace smoking status Former smoker Quinten Lucas i social history E&M S moking History: P hunter is a former smoker. Quinten Peace smoking history, tot al pack/day 4/D Linda Teresa cigarette use yes Linda darden smoking status Former smoker Linda bowman social history reviewed E&M revi ewed - no changes required Quinten Peace social history reviewed E&M revi ewed - no changes required Quinten Peace smoking/tobacco cess ation, patient education and counseling yes Quan Tracy smoking history, tot al pack/day 4/D Quan Tracy cigarette use yes Quan Tracy smoking status Current every day smoker Deniz smithdella Tracy social history reviewed E&M revi ewed - no changes required Quan Avelfabiana social history E&M S moking History: P atient currently smokes every day. P atient has been counseled to quit. Quan Tracy social history reviewed E&M revi ewed - no changes required Quan Vallecillofabiana smoking/tobacco cess ation, patient education and counseling yes Monalisa Vicki smoking history, tot al pack/day 4/D Monalisa Vicki cigarette use yes Monalisa Kem valencia smoking status Current every day smoker Robert herrmann Vicki social history E&M S moking History: P atient currently smokes every day. P atient has been counseled to quit. Tyler Singh MD social history reviewed E&M revi ewed - no changes required Tyler Singh MD smoking/tobacco cess ation, patient education and counseling yes Tonsha Gross smoking history, tot al pack/day 4/D Tonsha Gross cigarette use yes Tonsha Gross smoking status Current every day smoker T onsha Gross social history E&M S moking History: P atient currently smokes every day. P atient has been counseled to quit. Tyler Singh MD social history reviewed E&M revi ewed - no changes required Tyler Singh MD smoking/tobacco cess ation, patient education and counseling yes [facility] smoking history, tot al pack/day 4/D [facility] cigarette use yes [facility] smoking status Current every day smoker T [facility] social history E&M S moking History: P atient currently smokes every day. P atient has been counseled to quit. Tyler Singh MD smoking/tobacco cess ation, patient education and counseling yes Tyler Singh MD smoking history, tot al pack/day 4/D Tyler Singh MD cigarette use yes Tyler Quiroz smoking status Current every day smoker T yusuf Singh MD social history reviewed E&M revi ewed - no changes required Tyler Singh MD social history reviewed E&M revi ewed - no changes required Tyler Singh MD social history E&M S moking History: P atient currently smokes every day. P atient has been counseled to quit. Tyler Singh MD smoking/tobacco cess ation, patient education and counseling yes Frances Jesus smoking history, tot al pack/day 4/D Frances Jesus cigarette use yes Frances Amaya smoking status Current every day smoker E meredith Jesus number of grandchildren Tyler Singh MD social history E&M S moking History: P atient currently smokes every day. P atient has been counseled to quit. Tyler Singh MD smoking/tobacco cess ation, patient education and counseling yes Tyler Singh MD social history reviewed E&M revi ewed - no changes required Frances Jesus smoking history, tot al pack/day 4/D Frances Jesus cigarette use yes Frances Amaya smoking status Current every day smoker Sean harper Ann Marie FAMILY HISTORY Family Member Condition Mother Family History Madiha jung Cancer: INSURANCE PROVIDERS Payer name Policy type / Coverage type Wesley red alliance party ID [facility] [id number] ADVANCE DIRECTIVES Name Date DISCUSSED - NO DECISION MADE TREATMENT PLAN Date Name Performer [id number],S, Quinten Ahmedza i [id number],S, Quinten Ahmedza i [id number],S, Quinten Ahmedza i [id number],S, Quinten Ahmedza i [id number],S, Quinten Ahmedza i [id number],B, Quinten Ahmedza i [id number],S, Quinten Ahmedza i [id number],S, Quinten Ahmedza i [id number],S, Quinten Ahmedza i [id number],S, Quinten Ahmedza i [id number],S, Quinten Ahmedza i [id number],S, Quinten Ahmedza i [id number],S, Quinten Ahmedza i [id number],S, Quinten Ahmedza i [id number],S, Quinten Ahmedza i [id number],S, Quan Vallecillot [id number],B, Quan Tracy [id number],S, Quan Tracy [id number],W, Quan Tracy [id number],S, Quan Tracy Telehealth Quinten Ahmedzai Telehealth Quinten Ahmedzai Telehealth Quinten Ahmedzai Telehealth Quinten Ahmedzai Telehealth Quinten Ahmedzai Cardiology Quinten Ahmedzai Cardiology: B P today: 140/78 P rior BP: 152/88 (10/05/2022) His updated medication list for this problem includes: Metoprolol Succinate 50 Mg Tablet Extended Release 24 Hr (Metoprolol succinate) ..... Take 1 tablet by mouth every day Losartan-hydrochlorothiazide 100-25 Mg Tablet (Losartan-hydrochlorothiazide) ..... Take 1 tablet by mouth every day Quinten Ahmedzai Cardiology Quinten Ahmedzai Cardiology Quinten Ahmedzai Cardiology Quinten Ahmedzai Cardiology Quinten Ahmedzai Cardiology Quinten Ahmedzai Cardiology Quinten Ahmedzai Cardiology Quinten Ahmedzai Cardiology Quinten Ahmedzai Cardiology Quinten Ahmedzai Cardiology Quinten Ahmedzai Cardiology Quinten Ahmedzai Cardiology Quinten Ahmedzai Telehealth Quinten Ahmedzai Telehealth Quinten Ahmedzai Telehealth Quinten Ahmedzai Telehealth Quinten Ahmedzai Telehealth Quinten Ahmedzai Telehealth Quinten Ahmedzai Telehealth Quinten Ahmedzai Telehealth Quinten Ahmedzai Telehealth Quinten Ahmedzai [facility] Follow up [facility] Follow up [facility] Follow up [facility] Follow up [facility] Follow up [facility] [place] f/up in 1 yr Tyler bryson MD Cardiology f/up in 1 yr Tyler bryson MD Cardiology f/up in 1 yr Tyler bryson MD Cardiology f/up in 1 yr Tyler bryson MD Cardiology Tyler Singh MD Cardiology Tyler Singh MD Cardiology Tyler Singh MD Cardiology Tyler Singh MD Cardiology Tyler Singh MD Cardiology Tyler Singh MD Cardiology Tyler Singh MD Cardiology Tyler Singh MD Cardiology Tyler Singh MD Cardiology Tyler Singh MD Cardiology Tyler Singh MD Cardiology Tyler Singh MD Cardiology Tyler Singh MD Cardiology Tyler Singh MD Cardiology Tyler Singh MD Date Name Stress Routine Complete Echo Carotid Duplex Bilat eral Stress Echo HISTORY OF PROCEDURES Procedure Date Procedure Name Provider Procedure Notes S tatus EKG Tyler Singh MD completed EKG Tyler Singh MD completed EKG Tyler Singh MD completed EKG Tyler Singh MD completed
--- OUTSIDE RECORDS SUMMARY | 2024-11-09 13:21 | XMS_ITS | Clinical Summary ---
Author Organization [facility] Address [address] [place] [id number] Phone Care Team Providers Care Caterpillar Tractor Operator Name Role Phone Leandro Farrell MD Primary Care Provider [phone] Allergies No known active allergies Medications Medication Sig Dispensed Refills Start Date End Date Status fluticasone (FLONASE) 50 MCG/ACT nasal spray Administer 1 spray into each nostril in the morning and 1 spray in the evening. Shake gently. Before first use, prime pump. After use, clean tip and replace cap.. Active albuterol HFA (PROVENTIL HFA) 108 (90 Base) MCG/ACT inhaler Inhale 2 puffs every 6 (six) hours if needed for wheezing Active cyanocobalamin (VITAMIN B-12) 1000 MCG tablet Take 100 mcg by mouth 1 (one) time each day Active atorvastatin (LIPITOR) 10 MG tablet Take 10 mg by mouth 1 (one) time each day Active PARoxetine (PAXIL) 20 MG tablet Take 20 mg by mouth 1 (one) time each day in the morning Active metoprolol succinate XL (TOPROL-XL) 50 MG 24 hr tablet Take 50 mg by mouth 1 (one) time each day Active folic acid (FOLVITE) 400 MCG tablet Take 400 mcg by mouth 1 (one) time each day Active losartan-hydroCHL OROthiazide (HYZAAR) 100-25 MG per tablet Take 1 tablet by mouth 1 (one) time each day Active ferrous sulfate 325 (65 Fe) MG tablet Take 325 mg by mouth 1 (one) time each day with breakfast Active glucosamine-chond roitin 500-400 MG tablet Take 1 tablet by mouth in the morning and 1 tablet in the evening and 1 tablet before bedtime. Active omega-3 acid ethyl esters (LOVAZA) 1 g capsule Take 1 g by mouth in the morning and 1 g in the evening. Active PARoxetine (PAXIL) 10 MG tablet Take 10 mg by mouth 1 (one) time each day in the morning 10/11/2024 Discontinued atorvastatin (LIPITOR) 20 MG tablet Take 20 mg by mouth 1 (one) time each day 10/11/2024 Discontinued Active Problems Problem Noted Date Diagnosed Date Hyponatremia 10/10/2024 Essential hypertension 10/10/2024 Anemia 10/10/2024 Encounters Date Type Department Care Team Description 10/11/2024 2:00 PM COUNTER CUTTER Office Visit [facility] [address] [place] [address] Rogelio Puckett MD Chronic kidney disease stage 2 (Primary Dx); Essential hypertension from Last 3 Months Family History Medical History Relation Comments Myocardial infarction Father Stroke Father Cancer Mother Relation Status Comments Father PA and stroke at age 61 and Mother breast cancer Social History Tobacco Use Types Packs/Day Years Used Date Smoking Tobacco: Former Cigarettes Smokeless Tobacco: Never Tobacco Cessation:Counseling Given: Not Answered Alcohol Use Standard Drinks/Week Comments Yes 0 (1 standard drink = 0.6 oz pur e alcohol) daily drinker 6-9 drinks daily Sex and Gender Information Value Date Recorded Sex Assigned at Not on file Gender Identity Not on file Sexual Orientation Not on file Last Filed Vital Signs Vital Sign Reading Time Taken Comments Blood Pressure 152/83 10/11/2024 1:35 PM COUNTER CUTTER Pulse 65 10/11/2024 1:35 PM COUNTER CUTTER Temperature - - Respiratory Rate - - Oxygen Saturation - - Inhaled Oxygen Concentration - - Weight 92.1 kg (203 lb) 10/11/2024 1:35 PM COUNTER CUTTER Height 177.8 cm (5' 10 ) 10/11/2024 1:35 PM COUNTER CUTTER Body Mass Index 29.13 10/11/2024 1:35 PM COUNTER CUTTER Plan of Treatment Upcoming Encounters Date Type Department Care Team (Late st Contact Info) Description 11/22/2024 1:20 PM CDT Office Visit [facility] [address] [place] [address] Rogelio Puckett MD [address] [id number] Health Maintenance Due Date Last Done Comments Pneumococcal PPSV23 Highest Risk Adult (1 of 3 - PCV13 ) 02/20/1983 Influenza Vaccine (#1) 2024 Care Teams Caterpillar Tractor Operator Relationship Specialty Start Date End Date Leandro Farrell MD PCP - General 10/10/24
[2024-11-09 14:12] LABS: Basophils Percent Auto 0.6 % (0.2-1.2); Eosinophils Percent Auto 0.6 % (0-4.4); Hematocrit 34.6 % (42.0-52.0); Hemoglobin 11.8 g/dL (14.0-18.0); Immature Granulocyte Absolute 0.01 K/mm3 (0.00-0.031); Immature Granulocyte Percent A 0.2 % (0-0.5); Lymphocytes Absolute Auto 1.24 K/mm3 (0.9-3.2); Lymphocytes Percent Auto 23.8 % (18.3-44.2); Mean Corpuscular HGB Conc 34.1 g/dl (32-36); Mean Corpuscular Hemoglobin 30.9 pg (26-34); Mean Corpuscular Volume 90.6 fl (80-100); Mean Platelet Volume 8.8 fl (7.4-10.4); Monocytes Absolute Auto 0.6 K/mm3 (0.1-0.6); Monocytes Percent Auto 11.9 % (2.6-8.5); Neutrophils Absolute Auto 3.3 K/mm3 (1.3-6.7); Neutrophils Percent Auto 62.9 % (45.5-73.1); Platelet Count Result 294 k/mm3 (150-375); Red Blood Count 3.82 M/mm3 (4.6-6.20); Red Cell Distribution Width 12.3 % (11.5-14.5); White Blood Count 5.2 K/mm3 (4.5-10.0)
[2024-11-09 15:10] LABS: Add Urine Microscopic? YES; Appearance Urine Clear (Clear); Bacteria Urine None Seen /hpf; Bilirubin Urine Negative (Negative); Blood Urine Negative (Negative); Color Urine Yellow (Yellow); Glucose Urine UA Negative (Negative); Ketones Urine Negative (Negative); Leukocyte Esterase Ur Negative LEU/UL (Negative); Nitrate Urine Negative (Negative); Non Pathogenic Casts 0-2; Protein Urine Trace mg/dL (Negative); RBC Urine 0-2 /hpf (0-2); Specific Grav Ur 1.014 (1.001-1.035); Squamous Epithelial Cell Urine None Seen /hpf (Few); Urobilinogen Urine 0.2 mg/dL (<2.0); WBC Urine 0-5 /hpf (0-3); pH Urine 5.5 (5.0-9.0)
[2024-11-09 15:17] LABS: Cholesterol 210 mg/dL (0-200); HDL Direct 69 mg/dL; Triglycerides 71 mg/dL (<150)
[2024-11-09 15:19] LABS: Albumin Level 4.2 g/dL (3.5-5.1); Anion Gap 7 mmol/L (4-12); Blood Urea Nitrogen 20 mg/dL (9-20); Calcium 8.9 mg/dL (8.4-10.2); Carbon Dioxide 27 mmol/L (22-30); Chloride 98 mmol/L (98-107); Estimated Glomerular Filt Rate > 60; Glucose 95 mg/dL (65-110); Phosphorus 3.4 mg/dL (2.5-4.5); Sodium 132 mmol/L (137-145)
[2024-11-09 15:20] LABS: Creatinine Urine 61.1 mg/dL; Total Protein Urine Random 23 mg/dL; Ur Ttl Prot Creatinine Ratio 0.38 mg/mg (0-0.20)
[2024-11-09 15:23] LABS: Iron 80 ug/dL (49-181)
[2024-11-09 15:27] LABS: Alanine Aminotransferase 33 U/L (6-50); Albumin Level 4.2 g/dL (3.5-5.1); Alkaline Phosphatase 73 U/L (38-126); Anion Gap 7 mmol/L (4-12); Aspartate Amino Transferase 52 U/L (17-59); Bilirubin,Total 0.6 mg/dL (0.2-1.3); Blood Urea Nitrogen 22 mg/dL (9-20); Calcium 8.9 mg/dL (8.4-10.2); Carbon Dioxide 27 mmol/L (22-30); Chloride 98 mmol/L (98-107); Estimated Glomerular Filt Rate > 60; Glucose 99 mg/dL (65-110); LDL Cholesterol Direct 101 mg/dL; Potassium 4.1 mmol/L (3.4-5.0); Sodium 132 mmol/L (137-145)
[2024-11-09 15:41] LABS: Percent Iron Saturation 26 % (20-50)
[2024-11-09 16:30] LABS: Folic Acid 19.2 ng/mL (2.76->20)
== END 2024-11-09 13:17 | disposition home or self-care (01) ==
LOC: ANHLAB 13:17
PROVIDERS: PCP Emergency Medicine; Referring Provider Hospitalist; Visit Provider Internal Medicine Hematology & Oncology
DX: D72.819 Decreased white blood cell count, unspecified (principal); D50.9 Iron deficiency anemia, unspecified; E78.5 Hyperlipidemia, unspecified; N18.2 Chronic kidney disease, stage 2 (mild); I12.9 Hypertensive chronic kidney disease with stage 1 through stage 4 chronic kidney disease, or unspecified chronic kidney disease
CPT/HCPCS: 36415; 80053; 80061; 80069; 81001; 82570; 82607; 82728; 82746; 83540; 83550; 84156; 85025

== ENCOUNTER 2025-05-20 09:16 | Outpatient (CLI) | payer BC, SELFPAY ==
[2025-05-20 09:51] LABS: Hematocrit 40.5 % (42.0-52.0); Hemoglobin 13.5 g/dL (14.0-18.0); Immature Granulocyte Percent A 0.4 % (0-0.5); Lymphocytes Absolute Auto 0.99 K/mm3 (0.9-3.2); Mean Corpuscular HGB Conc 33.3 g/dl (32-36); Mean Corpuscular Hemoglobin 31.0 pg (26-34); Mean Corpuscular Volume 93.1 fl (80-100); Nucleated Red Blood Cells Absolute Auto 0.000 K/mm3 (0.0-0.012); Nucleated Red Blood Cells Perc 0.0 % (0.0-0.2); Platelet Count Result 347 k/mm3 (150-375); Red Blood Count 4.35 M/mm3 (4.6-6.20); White Blood Count 5.5 K/mm3 (4.5-10.0)
--- OUTSIDE RECORDS SUMMARY | 2025-05-20 10:03 | XMS_ITS | Clinical Summary ---
Author Organization [facility] Jeremy Berkowitz Address [address] [place] [address] Care Team Providers Care Occupational Therapist Name Role Phone Leandro Farrell MD Primary Care Provider [phone] Allergies No known active allergies Medications fluticasone propionate (FLONASE) 50 mcg/spray [place], Suspension nasal inhaler SPRAY 1 SPRAY INTO [...] Problem Noted Date Diagnosed Date Leukopenia 12/05/2020 Encounters Date Type Department Care Team Description 04/03/2025 External Device Data STL ABSTRACTION Provider, Abstract 02/27/2025 External Device Data STL ABSTRACTION Provider, Abstract from Last 3 Months Family History Medical History Relation Name Comments [...] Sign Reading Time Taken Comments Blood Pressure 148/88 11/15/2024 1:49 PM CDT Pulse 65 11/15/2024 1:47 PM CDT Temperature 36.6 C (97.9 F) 11/15/2024 1:47 PM CDT Respiratory Rate 16 11/15/2024 1:47 PM CDT Oxygen Saturation 95% 11/15/2024 1:47 PM CDT Inhaled Oxygen Concentration - - Weight 92.6 kg (204 lb 3.2 oz) 11/15/2024 1:47 P M CDT Height 177.8 cm (5' 10) 01/01/2022 8:31 AM CDT Body Mass Index 29.3 01/01/2022 8:31 AM CDT Plan of Treatment Upcoming Encounters Date Type Department Care Team (Late st Contact Info) Description 07/18/2025 10:00 AM DIRECTOR PATIENT ACCOUNTING Office Visit [facility] [place] [address] [place] [address] Min Roberts MD [address] [place] [address] Health Maintenance Due Date Last Done Comments Pre-Diabetes and Diabetes Screening 1965 DTAP/TDAP/TD VACCINES (1 - Tdap) 02/20/1983 COLORECTAL SCREENING 02/20/2009 Colorectal Cancer Screening 02/20/2009 FIT-DNA Q 3 years 02/20/2009 FIT/FOBT Q 1 year 02/20/2009 Flex Sig/CT Colonography Q 5 years 02/20/2009 ZOSTER VACCINE (1 of 2) 02/20/2014 RSV VACCINE (60+ or ) (1 - Risk 60-74 years 1-dose series) 2024 INFLUENZA VACCINE (#1) 2025 Abdominal Aortic Aneurysm (AAA) Screening Completed 12/13/2020 Procedures Procedure Name Priority Date/Time Associated Diagnosis Comments US ABDOMEN COMPLETE Routine 12/13/2020 Leukopenia, unspecified type from Last 3 Months or Most Recently Relevant to Health Maintenance Results * US ABDOMEN COMPLETE (12/13/2020) Anatomical Region Laterality Modality Abdomen Ultrasound us Min Roberts MD US ORDERABLES Final Result from Last 3 Months or Most Recently Relevant to Health Maintenance Insurance Care Teams Occupational Therapist Relationship Specialty Start Date End Date Leandro Farrell MD [address] [place] [phone] PCP - General Emergency Medicine 12/05/20
--- OUTSIDE RECORDS SUMMARY | 2025-05-20 10:03 | XMS_ITS | Clinical Summary ---
Author Organization [facility] Address [address] [place] [id number] Care Team Providers Care Sub Acute Care Nurse Name Role Phone Unavailable Primary Care Provider [...] Td Vaccines ( 1 - Tdap) 02/20/1983 Pneumococcal Vaccine: 50+ Ye ars (1 of 1 - PCV) 02/20/2014 Zoster Vaccines (1 of 2) 02/20/2014 COVID-19 Vaccine ( - 2023-2 5 season) 2025 RSV Immunization or 60+ Years (1 - [...]
--- OUTSIDE RECORDS SUMMARY | 2025-05-20 10:03 | XMS_ITS | Clinical Summary ---
Author Organization [facility] Address [address] [place] [id number] Phone Care Team Providers Care Feed Research Aide Name Role Phone Leandro Farrell MD Primary Care Provider [phone] Allergies No known active allergies Medications fluticasone (FLONASE) 50 MCG/ACT nasal spray Administer 1 spray into each nostril in the morning and 1 spray in the evening. Shake gently. Before first use, prime pump. After use, clean tip and replace cap. Active cyanocobalamin (VITAMIN B-12) 1000 MCG tablet [...] mouth 1 (one) time each day Active losartan-hydroC HLOROthiazide (HYZAAR) 100-25 MG per tablet Take 1 tablet by mouth 1 (one) time each day Active ferrous sulfate 325 (65 Fe) MG tablet Take 325 mg by mouth 1 (one) time each day with breakfast Active glucosamine-cho ndroitin 500-400 MG tablet Take 1 tablet by mouth in the morning and 1 tablet in the evening and 1 tablet before bedtime. Active omega-3 acid ethyl esters (LOVAZA) 1 g capsule Take 1 g by mouth in the morning and 1 g in the evening. Active Active Problems Problem Noted Date Diagnosed Date Anemia in chronic kidney disease 05/08/2025 Proteinuria 11/15/2024 Chronic kidney disease stage 2 11/15/2024 Vitamin D deficiency 11/15/2024 Hyponatremia 10/10/2024 Essential hypertension 10/10/2024 Resolved Problems Problem Noted Date Diagnosed Date Resolved Date Anemia 10/10/2024 11/15/2024 Family History Medical History Relation Comments Myocardial infarction Father Stroke Father Cancer Mother Relation Status Comments Father MS and stroke at age 61 and Mother [...] at Not on file Legal Sex Male 10:10 AM [facility] Gender Identity Not on file Sexual Orientation Not on file Last Filed Vital Signs Vital Sign Reading Time Taken Comments Blood Pressure 125/71 11/22/2024 1:46 PM CDT Pulse 68 11/22/2024 1:46 PM CDT Temperature - - Respiratory Rate - - Oxygen Saturation - - Inhaled Oxygen Concentration - - Weight 93 kg (205 lb) 11/22/2024 1:46 PM CDT Height 177.8 cm (5' 10) 11/22/2024 1:46 PM CDT Body Mass Index 29.41 11/22/2024 1:46 PM CDT Plan of Treatment Upcoming Encounters Date Type Department Care Team ([facility] st Contact Info) Description 05/23/2025 12:20 PM CDT Office Visit [facility] [address] [address] Rogelio Puckett MD [address] [place] [address] Health Maintenance Due Date Last Done Comments Pneumococcal PPSV23 Highest Risk Adult (1 of 3 - PCV13 ) 02/20/1983 Influenza Vaccine (#1) 2025 Insurance PM [employer]ANCE Care Teams Feed Research Aide Relationship Specialty Start Date End Date Leandro Farrell MD PCP - General 10/10/24
--- OUTSIDE RECORDS SUMMARY | 2025-05-20 10:03 | XMS_ITS | Clinical Summary ---
Author Organization [facility] Address [address] [facility] [place] [address] Care Team Providers Care Electronic Warfare Technical Name Role Phone Leandro Farrell MD Primary Care Provider [phone] Source Comments [facility],non-owned Affiliates and Associated Physician Practices is amultiple site organization consisting of ambulatory clinics and hospital sitesin [place], [place], [place] and [place]. This disclosure is being madepursuant to the Care Everywhere program and may not contain all information available regarding this patient. Last updated 18.[facility] Allergies No known active allergies Medications * Be aware that medications may not be up to date on this document. Alwaysverify current medications with the patient. 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 Gender Identity Not on file Sexual Orientation [...] A M CDT Height 180.3 cm (5' 11) 06/09/2021 7:58 AM CDT Body Mass Index [...] 50+ (1 of 2 - PCV) 02/20/1983 ZOSTER VACCINE (1 of 2) 02/20/2014 SCREENING FOR DIABETES 06/09/2021 DEPRESSION SCREENING 08/15/2024 COVID-19 VACCINE (2024-2 6 season) 2025 08/16/2021, 12/28/2020, 12/07/2020 INFLUENZA VACCINE (#1) 2025 08/06/2020 Respiratory Syncytial Virus (RSV) Vaccine Pt: or [...] on patient's age to complete this topic Insurance ANTHEM ANTHEM Care Teams Electronic Warfare Technical Relationship Specialty Start Date End Date Leandro Farrell MD [address] [facility] [address] [place] [address] PCP - General 02/10/21
[2025-05-20 10:08] LABS: Add Urine Microscopic? YES; Appearance Urine Clear (Clear); Glucose Urine UA Negative (Negative); Leukocyte Esterase Ur Negative LEU/UL (Negative); Nitrate Urine Negative (Negative); Non Pathogenic Casts 0-2; Specific Grav Ur 1.019 (1.001-1.035)
[2025-05-20 10:15] LABS: Alanine Aminotransferase 38 U/L (6-50); Albumin Level 4.5 g/dL (3.5-5.1); Alkaline Phosphatase 79 U/L (38-126); Anion Gap 9 mmol/L (4-12); Aspartate Amino Transferase 52 U/L (17-59); Bilirubin,Total 0.8 mg/dL (0.2-1.3); Blood Urea Nitrogen 20 mg/dL (9-20); Calcium 9.2 mg/dL (8.4-10.2); Carbon Dioxide 26 mmol/L (22-30); Chloride 98 mmol/L (98-107); Cholesterol 262 mg/dL (0-200); Estimated Glomerular Filt Rate > 60; Glucose 111 mg/dL (65-110); HDL Direct 63 mg/dL; Potassium 4.6 mmol/L (3.4-5.0); Sodium 133 mmol/L (137-145); Total Protein 8.8 g/dL (6.3-8.2); Triglycerides 116 mg/dL (<150)
[2025-05-20 10:17] LABS: Albumin Level 4.5 g/dL (3.5-5.1); Anion Gap 7 mmol/L (4-12); Blood Urea Nitrogen 21 mg/dL (9-20); Calcium 9.4 mg/dL (8.4-10.2); Carbon Dioxide 26 mmol/L (22-30); Chloride 99 mmol/L (98-107); Estimated Glomerular Filt Rate > 60; Glucose 112 mg/dL (65-110); Potassium 4.8 mmol/L (3.4-5.0); Sodium 132 mmol/L (137-145)
[2025-05-20 10:18] LABS: Total Protein Urine Random 16 mg/dL; Ur Ttl Prot Creatinine Ratio 0.16 mg/mg (0-0.20)
[2025-05-20 10:22] LABS: Hemoglobin A1C 5.6 % (<5.7)
[2025-05-20 10:50] LABS: Prostate Specific Antigen 1.1 ng/mL (< OR = 4.0)
== END 2025-05-20 09:17 | disposition home or self-care (01) ==
LOC: ANHLAB 09:19
PROVIDERS: PCP Emergency Medicine; Visit Provider Hospitalist
DX: Z00.00 Encounter for general adult medical examination without abnormal findings (principal); I12.9 Hypertensive chronic kidney disease with stage 1 through stage 4 chronic kidney disease, or unspecified chronic kidney disease; N18.2 Chronic kidney disease, stage 2 (mild); R80.9 Proteinuria, unspecified; E78.5 Hyperlipidemia, unspecified
CPT/HCPCS: 36415; 80053; 80061; 80069; 81001; 82306; 82570; 83036; 84153; 84156; 85025

== ENCOUNTER 2025-07-15 11:53 | Outpatient (CLI) | payer BC, SELFPAY ==
[2025-07-15 12:13] LABS: Hematocrit 37.9 % (42.0-52.0); Hemoglobin 12.9 g/dL (14.0-18.0); Immature Granulocyte Percent A 0.2 % (0-0.5); Lymphocytes Absolute Auto 1.18 K/mm3 (0.9-3.2); Mean Corpuscular HGB Conc 34.0 g/dl (32-36); Mean Corpuscular Hemoglobin 30.9 pg (26-34); Mean Corpuscular Volume 90.9 fl (80-100); Nucleated Red Blood Cells Absolute Auto 0.000 K/mm3 (0.0-0.012); Nucleated Red Blood Cells Perc 0.0 % (0.0-0.2); Platelet Count Result 307 k/mm3 (150-375); Red Blood Count 4.17 M/mm3 (4.6-6.20); White Blood Count 5.0 K/mm3 (4.5-10.0)
[2025-07-15 12:44] LABS: Iron 111 ug/dL (49-181)
[2025-07-15 12:45] LABS: Alanine Aminotransferase 26 U/L (6-50); Albumin Level 4.3 g/dL (3.5-5.1); Alkaline Phosphatase 76 U/L (38-126); Anion Gap 4 mmol/L (4-12); Aspartate Amino Transferase 43 U/L (17-59); Bilirubin,Total 0.6 mg/dL (0.2-1.3); Blood Urea Nitrogen 21 mg/dL (9-20); Calcium 9.1 mg/dL (8.4-10.2); Carbon Dioxide 27 mmol/L (22-30); Chloride 101 mmol/L (98-107); Estimated Glomerular Filt Rate > 60; Glucose 98 mg/dL (65-110); Potassium 4.0 mmol/L (3.4-5.0); Sodium 132 mmol/L (137-145); Total Protein 8.3 g/dL (6.3-8.2)
[2025-07-15 12:53] LABS: Percent Iron Saturation 38 % (20-50)
--- OUTSIDE RECORDS SUMMARY | 2025-07-15 13:20 | XMS_ITS | Clinical Summary ---
Author Organization [facility] Address [address] [facility] [place] [address] Care Team Providers Care Dredge Hand Name Role Phone Leandro Farrell MD Primary Care Provider [phone] Source Comments [facility],non-owned Affiliates and Associated Physician Practices is amultiple site organization consisting of ambulatory clinics and hospital sitesin [place], [place], [place] and [place]. This disclosure is being madepursuant to the Care Everywhere program and may not contain all information available regarding this patient. Last updated 18.[facility] Allergies No known active allergies Medications * Be aware that medications may not be up to date on this document. Alwaysverify current medications with the patient. 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
--- OUTSIDE RECORDS SUMMARY | 2025-07-15 13:20 | XMS_ITS | Clinical Summary ---
Author Organization [facility] Address [address] [place] [id number] Care Team Providers Care Freelance Web Designer Name Role Phone Unavailable Primary Care Provider [...] of 2) 02/20/2014 COVID-19 Vaccine ( - 2024-2 6 season) 2025 Influenza Adult (#1) 2025 RSV Immunization or 60+ Years (1 - 1-dose 75+ series) 02/20/2039 Hepatitis A Vaccines Aged Out No long er eligible based on patient's age to complete this topic Meningococcal B Vaccine Aged Out No l onger eligible based on patient's age to complete this topic Meningococcal Vaccine Aged Out No roxana chivo eligible based on patient's age to complete this topic RSV Immunizations Under 20 Months Aged Out No longer eligible based on patient's age to complete this topic
--- OUTSIDE RECORDS SUMMARY | 2025-07-15 13:20 | XMS_ITS | Clinical Summary ---
[facility] Address [address] [facility] [place] [address] Care Team Providers Care Harness Preparer Name Role Phone Leandro Farrell MD Primary Care Provider Allergies No known active allergies Medications fluticasone propionate (FLONASE) 50 mcg/spray [place], Suspension nasal inhaler SPRAY 1 SPRAY INTO [...] Encounters Date Type Department Care Team Description 05/28/2025 External Device Data ST[facility] ABSTRACTION Provider, Abstract from Last 3 Months Family History Medical History Relation Name Comments Heart Disease Father Relation Name Status Comments Daughter Father Mother Alive Sister 1 Sister 2 Alive Sister 3 Alive Sister 4 Alive Son 1 Alive Son 2 Alive Social History Tobacco Use Types Packs/Day Years Used Date Smoking Tobacco: Former Cigarettes 0 Q uit: 08/15/2022 Smokeless Tobacco: Current Chew [...] st Contact Info) Description 07/18/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 Office Visit [facility] Oncology and Hematology - [place] [address] [facility] [address] [place] [address] Min Roberts MD [address] [facility] [address] [place] [address] Health Maintenance Due Date Last Done Comments Pre-Diabetes and Diabetes Screening 1965 DTAP/TDAP/TD VACCINES (1 - Tdap) 02/20/1983 COLORECTAL SCREENING 02/20/2009 Colorectal Cancer Screening 02/20/2009 FIT-DNA Q 3 years 02/20/2009 FIT/FOBT Q 1 year 02/20/2009 Flex Sig/CT Colonography Q 5 years 02/20/2009 RSV VACCINE (60+ or ) (1 - Risk 50-74 years 1-dose series) 02/20/2014 ZOSTER VACCINE (1 of 2) 02/20/2014 Preventative Visit- Commercial 08/15/2024 INFLUENZA VACCINE (#1) 2025 Abdominal Aortic Aneurysm [...] Relevant to Health Maintenance Insurance Care Teams Harness Preparer Relationship Specialty Start Date End Date Leandro Farrell MD [address] [place] [phone] PCP - General Emergency Medicine 12/05/20
--- OUTSIDE RECORDS SUMMARY | 2025-07-15 13:20 | XMS_ITS | Clinical Summary ---
Author Organization [facility] Address [address] [place] [address] Phone Care Team Providers Care Scaffold Erector Name Role Phone Leandro Farrell MD Primary Care Provider [phone] Allergies No known active allergies Medications cyanocobalamin (VITAMIN B-12) 1000 MCG tablet Take [...] (one) time each day with breakfast Active omega-3 acid ethyl esters (LOVAZA) 1 [...] Diagnosed Date Resolved Date Anemia 10/10/2024 11/15/2024 Encounters Date Type Department Care Team Description 05/23/2025 12:20 PM CDT Office Visit [facility] [address] [place] [address], [address] [place] [address] Rogelio Puckett MD Chronic kidney disease stage 2 (Primary Dx); Hyponatremia from Last 3 Months Family History Medical History Relation Comments Myocardial infarction Father Stroke Father Cancer Mother Relation Status Comments Father [place] and stroke at age 61 and Mother breast cancer Social History Tobacco Use Types Packs/Day Years Used Date Smoking Tobacco: Former Cigarettes Smokeless Tobacco: Never Alcohol Use Standard Drinks/Week Comments Yes 0 (1 standard drink = 0.6 oz pur e alcohol) daily drinker 6-9 drinks daily Sex and Gender Information Value Date Recorded Sex Assigned at Not on file Legal Sex Male 10:10 AM [facility] Gender Identity Not on file Sexual Orientation Not on file Last Filed Vital Signs Vital Sign Reading Time Taken Comments Blood Pressure 121/66 05/23/2025 12:15 PM CDT Pulse 76 05/23/2025 12:15 PM CDT Temperature - - Respiratory Rate - - Oxygen Saturation - - Inhaled Oxygen Concentration - - Weight 92.1 kg (203 lb) 05/23/2025 12:15 PM CDT Height 177.8 cm (5' 10) 05/23/2025 12:15 PM CDT Body Mass Index 29.13 05/23/2025 12:15 PM CDT Plan of Treatment Upcoming Encounters Date Type Department Care Team (Late st Contact Info) Description 12/03/2025 11:20 AM CDT Office Visit [facility] [address] [place] [phone] Rogelio Puckett MD [address] [place] [address] Health Maintenance Due Date Last Done Comments Pneumococcal PPSV23 Highest Risk Adult (1 of 3 - PCV13 ) 02/20/1983 Influenza Vaccine (#1) 2025 Insurance PM [employer] INSURANCE Care Teams Scaffold Erector Relationship Specialty Start Date End Date Leandro Farrell MD PCP - General 10/10/24
[2025-07-15 13:25] LABS: Ferritin 195.00 ng/mL (11.1-264)
[2025-07-15 13:59] LABS: Vitamin B12 871.0 pg/mL (239-931)
== END 2025-07-15 11:54 | disposition home or self-care (01) ==
LOC: ANHLAB 11:54
PROVIDERS: PCP Emergency Medicine; Visit Provider Internal Medicine Hematology & Oncology
DX: D64.9 Anemia, unspecified (principal)
CPT/HCPCS: 36415; 80053; 82607; 82728; 82746; 83540; 83550; 85025